=== PATIENT | male | born 1970 | race Caucasian/White ===

== ENCOUNTER 2019-04-16 08:03 | Emergency (ER) | payer MEDICARE, MEDICAID ==
[~2019-04-16] VITALS: Ht 175.3 cm; Wt 120.0 kg
[~2019-04-16 08:03] MED LIST: IBUP-1051 PO; PERM60CR19 TP; SUMA25TA35 PO
[2019-04-16] MEDS ORDERED: ketorolac trometh. 30mg/ml inj. IM ONE (08:25)
[2019-04-16 09:36] LABS: BASOPHILS # (AUTO) 0.1 X10'3 (0-0.2); BASOPHILS % (AUTO) 0.8 % (0-1); EOSINOPHILS # (AUTO) 0.3 X10'3 (0-0.9); EOSINOPHILS % (AUTO) 2.6 % (0-6); HEMATOCRIT 46.1 % (42.0-52.0); HEMOGLOBIN 16.2 g/dl (14.0-17.9); LYMPHOCYTES # (AUTO) 2.1 X10'3 (1.1-4.8); MEAN CORPUSCULAR HEMOGLOBIN 32.4 PG (27.0-31.0); MEAN CORPUSCULAR HGB CONC 35.1 g/dL (33.0-36.5); MEAN CORPUSCULAR VOLUME 92.5 FL (78-98); MEAN PLATELET VOLUME 11.2 FL (7.4-10.4); MONOCYTES # (AUTO) 0.8 X10'3 (0-0.9); MONOCYTES % (AUTO) 6.6 % (2-12); NEUTROPHILS # (AUTO) 8.5 X10'3 (1.8-7.7); PLATELET COUNT 325 X10'3 (140-440); RED BLOOD COUNT 4.99 X10'6 (4.70-6.10); RED CELL DISTRIBUTION WIDTH 13.7 % (11.5-14.5); WHITE BLOOD COUNT 11.8 X10'3 (4.5-11.0)
[2019-04-16 12:02] VITALS: BP 127/71
--- NOTE | 2019-04-16 12:05 | NUR ---
pat in room ,no concern,pat said he is ready to go ,informed that there is no order of discharge yet,will keep it updated.
--- NOTE | 2019-04-16 12:30 | NUR ---
awaiting for cmp result,blood [facility].
--- NOTE | 2019-04-16 13:21 | NUR ---
called [facility] lab per tech,patient is registered a different name so [facility] registration need to fax them a copy of patient's id.
--- NOTE | 2019-04-16 13:27 | NUR ---
patient's number [id number].pt wanting to be dc'd.does not want to wait for cmp result.
[2019-04-16 15:30] LABS: ALBUMIN 4.5 G/DL (3.4-5.0); ANION GAP 13 (8-12); BILIRUBIN,TOTAL 0.16 MG/DL (0.1-1.0); CALCIUM 9.2 MG/DL (8.5-10.1); CHLORIDE 106 MMOL/L (99-107); GLUCOSE 78 MG/DL (70-110); SODIUM 138 MMOL/L (135-145); eGFR > 90 ML/MIN
[2019-04-16 15:32] LABS: CARBON DIOXIDE 19 MMOL/L (24-32)
[2019-04-16 15:33] LABS: ALKALINE PHOSPHATASE 79 U/L (42-121)
== END 2019-04-16 13:33 | disposition home or self-care (01) ==
LOC: ER 08:04
DX: M25.522 Pain in left elbow (principal); M25.521 Pain in right elbow; M79.604 Pain in right leg; M79.605 Pain in left leg; G43.909 Migraine, unspecified, not intractable, without status migrainosus; E78.00 Pure hypercholesterolemia, unspecified; I10 Essential (primary) hypertension; J45.909 Unspecified asthma, uncomplicated; E11.9 Type 2 diabetes mellitus without complications; G89.29 Other chronic pain; F12.90 Cannabis use, unspecified, uncomplicated; F17.210 Nicotine dependence, cigarettes, uncomplicated; Z88.5 Allergy status to narcotic agent; Z79.899 Other long term (current) drug therapy; Z60.2 Problems related to living alone
CPT/HCPCS: 36415; 85025; 96372; 99283; J1885

== ENCOUNTER 2019-12-28 14:35 | Emergency (ER) | payer MEDICARE, MEDICAID ==
[~2019-12-28] VITALS: Ht 175.3 cm; Wt 116.0 kg
[2019-12-28 16:05] VITALS: BP 167/82
[2019-12-28] MEDS ORDERED: PANT-47 PO (16:05)
== END 2019-12-28 16:23 | disposition home or self-care (01) ==
LOC: ER 14:35
DX: K29.70 Gastritis, unspecified, without bleeding (principal); R11.2 Nausea with vomiting, unspecified; E66.9 Obesity, unspecified; G43.909 Migraine, unspecified, not intractable, without status migrainosus; E78.00 Pure hypercholesterolemia, unspecified; I10 Essential (primary) hypertension; J45.909 Unspecified asthma, uncomplicated; E11.9 Type 2 diabetes mellitus without complications; G89.29 Other chronic pain; F12.90 Cannabis use, unspecified, uncomplicated; F17.200 Nicotine dependence, unspecified, uncomplicated; Z98.890 Other specified postprocedural states; Z88.5 Allergy status to narcotic agent; Z79.899 Other long term (current) drug therapy
CPT/HCPCS: 99283

== ENCOUNTER 2020-09-23 06:59 | Emergency (ER) | payer MEDICARE, MEDICAID ==
[~2020-09-23] VITALS: Ht 175.3 cm; Wt 123.3 kg
[~2020-09-23 06:59] MED LIST changes: +PANT-47 PO
[2020-09-23] MEDS ORDERED: HYDROcodone/acetaminophen 10/325mg tab PO ONE (07:55)
--- NOTE | 2020-09-23 08:16 | NUR ---
Spoke to [facility] about pt's home medications. Pt was on Lisinopril 20mg daily, however it was last filled 03/2019. Pt also previously on Fenofibrate, ventolin HFA, and loratadine as well.
[2020-09-23] MEDS ORDERED: lisinopril 10 MG tablet PO ONE (08:20)
[2020-09-23] MEDS ORDERED: LISI-600 PO (08:20)
[2020-09-23 08:31] VITALS: BP_DIAS 81
[2020-09-23 08:32] VITALS: BP_SYST 129
== END 2020-09-23 08:43 | disposition home or self-care (01) ==
LOC: ER 06:59
DX: I10 Essential (primary) hypertension (principal); R11.0 Nausea; G43.909 Migraine, unspecified, not intractable, without status migrainosus; E78.00 Pure hypercholesterolemia, unspecified; J45.909 Unspecified asthma, uncomplicated; E11.9 Type 2 diabetes mellitus without complications; G89.29 Other chronic pain; F12.90 Cannabis use, unspecified, uncomplicated; Z98.890 Other specified postprocedural states; Z88.8 Allergy status to other drugs, medicaments and biological substances; Z79.899 Other long term (current) drug therapy
CPT/HCPCS: 99283

== ENCOUNTER 2020-11-25 10:14 | Emergency (ER) | payer MEDICARE, MEDICAID ==
[~2020-11-25] VITALS: Ht 175.3 cm; Wt 120.5 kg
[2020-11-25] MEDS ORDERED: ondansetron/PF 4mg/2ml inj IV ONE (13:05)
[2020-11-25] MEDS ORDERED: normal saline 1000ML IV soln IVB ONE (13:05)
[2020-11-25] MEDS ORDERED: pantoprazole 40 MG vial IV ONE (13:05)
[2020-11-25 13:29] LABS: BASOPHILS % (AUTO) 0.4 % (0-1); EOSINOPHILS # (AUTO) 0.2 X10'3 (0-0.9); EOSINOPHILS % (AUTO) 2.4 % (0-6); HEMATOCRIT 53.4 % (42.0-52.0); HEMOGLOBIN 17.5 g/dl (14.0-17.9); LYMPHOCYTES # (AUTO) 1.5 X10'3 (1.1-4.8); LYMPHOCYTES % (AUTO) 15.3 % (21-51); MEAN CORPUSCULAR HEMOGLOBIN 31.1 PG (27.0-31.0); MEAN CORPUSCULAR HGB CONC 32.8 g/dL (33.0-36.5); MEAN CORPUSCULAR VOLUME 94.9 FL (78-98); MONOCYTES # (AUTO) 0.6 X10'3 (0-0.9); MONOCYTES % (AUTO) 6.3 % (2-12); NEUTROPHILS # (AUTO) 7.3 X10'3 (1.8-7.7); NEUTROPHILS % (AUTO) 75.6 % (42-75); PLATELET COUNT 234 X10'3 (140-440); RED BLOOD COUNT 5.62 X10'6 (4.70-6.10); WHITE BLOOD COUNT 9.7 X10'3 (4.5-11.0)
[2020-11-25 13:47] LABS: ANION GAP 9 (8-16); BILIRUBIN,TOTAL 0.7 MG/DL (0.1-1.0); BLOOD UREA NITROGEN 13 MG/DL (7-18); BUN/CREATININE RATIO 16.7 (5.4-32.0); CALCIUM 9.3 MG/DL (8.5-10.1); CHLORIDE 103 MMOL/L (99-107); CREATININE 0.78 MG/DL (0.60-1.10); GLUCOSE 95 MG/DL (70-104); POTASSIUM 4.5 MMOL/L (3.5-5.1); SODIUM 139 MMOL/L (135-145); eGFR > 90 ML/MIN
[2020-11-25 13:48] LABS: ALANINE AMINOTRANSFERASE 35 U/L (12-78); ALBUMIN 4.6 G/DL (3.4-5.0); ALBUMIN/GLOBULIN RATIO 1.4 (1.1-1.5); ALKALINE PHOSPHATASE 70 IU/L (46-116); ASPARTATE AMINO TRANSFERASE 32 U/L (10-37); LIPASE 136 U/L (73-393)
[2020-11-25] MEDS ORDERED: ONDA8TAB13 PO (13:50)
[2020-11-25] MEDS ORDERED: PANT-47 PO (13:52)
--- NOTE | 2020-11-25 14:02 | NUR ---
discussed benefit of iv medications, patient refused IV. Spoke to Dr Lo and order received to change iv zofran and protonix to PO.
[2020-11-25] MEDS ORDERED: ondansetron 4mg rapidly disintigrating tab PO ONE (14:05)
[2020-11-25] MEDS ORDERED: pantoprazole 40mg Tablet.DR PO SCH (14:10)
[2020-11-25 14:56] VITALS: BP 162/81
== END 2020-11-25 14:20 | disposition home or self-care (01) ==
LOC: ER 10:15
DX: K52.9 Noninfective gastroenteritis and colitis, unspecified (principal); J02.9 Acute pharyngitis, unspecified; G43.909 Migraine, unspecified, not intractable, without status migrainosus; E78.00 Pure hypercholesterolemia, unspecified; I10 Essential (primary) hypertension; J45.909 Unspecified asthma, uncomplicated; E11.9 Type 2 diabetes mellitus without complications; G89.29 Other chronic pain; F32.9 Major depressive disorder, single episode, unspecified; F17.200 Nicotine dependence, unspecified, uncomplicated; F12.90 Cannabis use, unspecified, uncomplicated; Z60.2 Problems related to living alone; Z88.5 Allergy status to narcotic agent; Z79.899 Other long term (current) drug therapy
CPT/HCPCS: 36415; 80053; 83690; 85025; 99283

== ENCOUNTER 2021-04-14 11:30 | Emergency (ER) | payer MEDICARE, MEDICAID ==
[~2021-04-14] VITALS: Ht 175.3 cm; Wt 116.0 kg
[~2021-04-14 11:30] MED LIST changes: +ONDA8TAB13 PO
[2021-04-14 12:37] VITALS: BP 137/78
[2021-04-14] MEDS ORDERED: orphenadrine citrate 60mg/2ml inj. IM ONE (14:45)
[2021-04-14] MEDS ORDERED: ketorolac tromethamine 15mg/ml inj. IM ONE (14:45)
[2021-04-14] MEDS ORDERED: CYCL-1 PO (14:48)
[2021-04-14] MEDS ORDERED: NAPR-56 PO (14:48)
== END 2021-04-14 15:56 | disposition home or self-care (01) ==
LOC: ER 11:31
DX: M54.5 Low back pain (principal); G89.29 Other chronic pain; G43.909 Migraine, unspecified, not intractable, without status migrainosus; E78.00 Pure hypercholesterolemia, unspecified; I10 Essential (primary) hypertension; J45.909 Unspecified asthma, uncomplicated; E11.9 Type 2 diabetes mellitus without complications; F32.9 Major depressive disorder, single episode, unspecified; F17.200 Nicotine dependence, unspecified, uncomplicated; F12.90 Cannabis use, unspecified, uncomplicated; Z60.2 Problems related to living alone; Z88.8 Allergy status to other drugs, medicaments and biological substances; Z79.899 Other long term (current) drug therapy
CPT/HCPCS: 96372; 99284; J1885; J2360

== ENCOUNTER 2021-05-14 01:17 | Emergency (ER) | payer MEDICARE, MEDICAID ==
[~2021-05-14] VITALS: Ht 175.3 cm; Wt 118.2 kg
[~2021-05-14 01:17] MED LIST changes: +CYCL-1 PO; +NAPR-56 PO
[2021-05-14 01:54] LABS: ALANINE AMINOTRANSFERASE 39 U/L (12-78); ALBUMIN 4.2 G/DL (3.4-5.0); ALBUMIN/GLOBULIN RATIO 1.2 (1.1-1.5); ALKALINE PHOSPHATASE 84 IU/L (46-116); ANION GAP 6 (8-16); ASPARTATE AMINO TRANSFERASE 23 U/L (10-37); BILIRUBIN,TOTAL 0.4 MG/DL (0.1-1.0); BLOOD UREA NITROGEN 15 MG/DL (7-18); CALCIUM 9.3 MG/DL (8.5-10.1); CHLORIDE 104 MMOL/L (99-107); CREATININE 0.94 MG/DL (0.60-1.10); GLUCOSE 87 MG/DL (70-104); POTASSIUM 4.1 MMOL/L (3.5-5.1); SODIUM 141 MMOL/L (135-145); TOTAL CARBON DIOXIDE 30.7 MMOL/L (24-32); TOTAL PROTEIN 7.7 G/DL (6.4-8.2); eGFR 85 ML/MIN
[2021-05-14 01:58] LABS: TROPONIN I < 0.04 NG/ML (0.0-0.05)
[2021-05-14 02:15] VITALS: BP 171/109
[2021-05-14 02:18] LABS: BASOPHILS % (AUTO) 0.4 % (0-1); EOSINOPHILS # (AUTO) 0.3 X10'3 (0-0.9); EOSINOPHILS % (AUTO) 3.1 % (0-6); HEMATOCRIT 50.1 % (42.0-52.0); HEMOGLOBIN 16.7 g/dl (14.0-17.9); LYMPHOCYTES # (AUTO) 2.3 X10'3 (1.1-4.8); LYMPHOCYTES % (AUTO) 20.4 % (21-51); MEAN CORPUSCULAR HEMOGLOBIN 31.4 PG (27.0-31.0); MEAN CORPUSCULAR HGB CONC 33.3 g/dL (33.0-36.5); MEAN CORPUSCULAR VOLUME 94.1 FL (78-98); MEAN PLATELET VOLUME 9.3 FL (7.4-10.4); MONOCYTES # (AUTO) 0.8 X10'3 (0-0.9); MONOCYTES % (AUTO) 6.8 % (2-12); NEUTROPHILS # (AUTO) 7.8 X10'3 (1.8-7.7); NEUTROPHILS % (AUTO) 69.3 % (42-75); PLATELET COUNT 237 X10'3 (140-440); RED BLOOD COUNT 5.33 X10'6 (4.70-6.10); RED CELL DISTRIBUTION WIDTH 13.7 % (11.5-14.5); WHITE BLOOD COUNT 11.2 X10'3 (4.5-11.0)
== END 2021-05-14 03:00 | disposition home or self-care (01) ==
LOC: ER 01:18
DX: R07.89 Other chest pain (principal); I10 Essential (primary) hypertension; R42 Dizziness and giddiness; G43.909 Migraine, unspecified, not intractable, without status migrainosus; E78.00 Pure hypercholesterolemia, unspecified; J45.909 Unspecified asthma, uncomplicated; E11.9 Type 2 diabetes mellitus without complications; G89.29 Other chronic pain; F32.9 Major depressive disorder, single episode, unspecified; F12.90 Cannabis use, unspecified, uncomplicated; Z98.890 Other specified postprocedural states; Z60.2 Problems related to living alone; Z88.8 Allergy status to other drugs, medicaments and biological substances; Z79.899 Other long term (current) drug therapy
CPT/HCPCS: 36415; 71045; 80053; 84484; 85025; 93005; 99285

== ENCOUNTER 2021-11-23 08:09 | Emergency (ER) | payer MEDICARE, MEDICAID ==
[~2021-11-23] VITALS: Ht 175.3 cm; Wt 100.0 kg
[~2021-11-23 08:09] MED LIST changes: -NAPR-56 PO
[2021-11-23 08:19] VITALS: BP 129/75
[2021-11-23 08:41] LABS: BASOPHILS % (AUTO) 0.4 % (0-1); EOSINOPHILS # (AUTO) 0.2 X10'3 (0-0.9); EOSINOPHILS % (AUTO) 2.8 % (0-6); HEMATOCRIT 50.6 % (42.0-52.0); HEMOGLOBIN 16.8 g/dl (14.0-17.9); LYMPHOCYTES # (AUTO) 1.7 X10'3 (1.1-4.8); LYMPHOCYTES % (AUTO) 19.5 % (21-51); MEAN CORPUSCULAR HEMOGLOBIN 31.4 PG (27.0-31.0); MEAN CORPUSCULAR HGB CONC 33.3 g/dL (33.0-36.5); MEAN CORPUSCULAR VOLUME 94.3 FL (78-98); MONOCYTES # (AUTO) 0.6 X10'3 (0-0.9); MONOCYTES % (AUTO) 6.5 % (2-12); NEUTROPHILS # (AUTO) 6.1 X10'3 (1.8-7.7); NEUTROPHILS % (AUTO) 70.8 % (42-75); PLATELET COUNT 240 X10'3 (140-440); RED BLOOD COUNT 5.36 X10'6 (4.70-6.10); RED CELL DISTRIBUTION WIDTH 13.9 % (11.5-14.5); WHITE BLOOD COUNT 8.7 X10'3 (4.5-11.0)
[2021-11-23 08:56] LABS: ALANINE AMINOTRANSFERASE 30 U/L (12-78); ALBUMIN/GLOBULIN RATIO 1.3 (1.1-1.5); ALKALINE PHOSPHATASE 59 IU/L (46-116); ANION GAP 8 (8-16); ASPARTATE AMINO TRANSFERASE 18 U/L (10-37); BILIRUBIN,TOTAL 0.4 MG/DL (0.1-1.0); BLOOD UREA NITROGEN 14 MG/DL (7-18); BUN/CREATININE RATIO 15.4 (5.4-32.0); CALCIUM 9.1 MG/DL (8.5-10.1); CHLORIDE 105 MMOL/L (99-107); CREATININE 0.91 MG/DL (0.60-1.10); GLUCOSE 97 MG/DL (70-104); POTASSIUM 4.4 MMOL/L (3.5-5.1); SODIUM 140 MMOL/L (135-145); TOTAL PROTEIN 7.2 G/DL (6.4-8.2); eGFR 88 ML/MIN
[2021-11-23] MEDS ORDERED: iohexol 350MG/ML 100ml bottle IV ONE (11:34)
== END 2021-11-23 12:31 | disposition home or self-care (01) ==
LOC: ER 08:10
DX: R07.89 Other chest pain (principal); R06.02 Shortness of breath; G43.909 Migraine, unspecified, not intractable, without status migrainosus; E78.00 Pure hypercholesterolemia, unspecified; I10 Essential (primary) hypertension; J45.909 Unspecified asthma, uncomplicated; E11.9 Type 2 diabetes mellitus without complications; G89.29 Other chronic pain; F32.9 Major depressive disorder, single episode, unspecified; F12.90 Cannabis use, unspecified, uncomplicated; Z98.890 Other specified postprocedural states; Z60.2 Problems related to living alone; Z88.8 Allergy status to other drugs, medicaments and biological substances; Z79.899 Other long term (current) drug therapy
CPT/HCPCS: 36415; 71045; 71275; 80053; 83880; 84484; 85025; 93005; 99285; Q9967

== ENCOUNTER 2022-06-28 07:33 | Emergency (ER) | payer MEDICARE, MEDICAID ==
[~2022-06-28] VITALS: Ht 175.3 cm; Wt 130.7 kg
[2022-06-28] MEDS ORDERED: ketorolac trometh. 30mg/ml inj. IV ONE (07:55)
[2022-06-28] MEDS ORDERED: acetaminophen 325mg tablet PO ONE (07:55)
[2022-06-28] MEDS ORDERED: normal saline 1000ml 1,000 ML IV ONE (07:55)
[2022-06-28 08:05] LABS: BASOPHILS # (AUTO) 0.1 X10'3 (0-0.2); BASOPHILS % (AUTO) 0.6 % (0-1); EOSINOPHILS # (AUTO) 0.3 X10'3 (0-0.9); EOSINOPHILS % (AUTO) 3.4 % (0-6); HEMATOCRIT 48.3 % (42.0-52.0); LYMPHOCYTES # (AUTO) 1.4 X10'3 (1.1-4.8); LYMPHOCYTES % (AUTO) 16.6 % (21-51); MEAN CORPUSCULAR HEMOGLOBIN 30.8 PG (27.0-31.0); MEAN CORPUSCULAR HGB CONC 33.1 g/dL (33.0-36.5); MEAN CORPUSCULAR VOLUME 92.9 FL (78-98); MEAN PLATELET VOLUME 9.1 FL (7.4-10.4); MONOCYTES # (AUTO) 0.5 X10'3 (0-0.9); MONOCYTES % (AUTO) 6.3 % (2-12); NEUTROPHILS # (AUTO) 6.1 X10'3 (1.8-7.7); NEUTROPHILS % (AUTO) 73.1 % (42-75); PLATELET COUNT 221 X10'3 (140-440); RED CELL DISTRIBUTION WIDTH 13.8 % (11.5-14.5); WHITE BLOOD COUNT 8.3 X10'3 (4.5-11.0)
[2022-06-28 08:34] LABS: ALANINE AMINOTRANSFERASE 28 U/L (12-78); ALBUMIN/GLOBULIN RATIO 1.1 (1.1-1.5); ALKALINE PHOSPHATASE 65 IU/L (46-116); ANION GAP 7 (8-16); ASPARTATE AMINO TRANSFERASE 29 U/L (10-37); BILIRUBIN,TOTAL 0.4 MG/DL (0.1-1.0); BLOOD UREA NITROGEN 12 MG/DL (7-18); CALCIUM 8.8 MG/DL (8.5-10.1); CHLORIDE 104 MMOL/L (99-107); CREATININE 0.86 MG/DL (0.60-1.10); GLUCOSE 99 MG/DL (70-104); SODIUM 139 MMOL/L (135-145); TOTAL CARBON DIOXIDE 27.9 MMOL/L (24-32); TOTAL PROTEIN 7.5 G/DL (6.4-8.2); eGFR > 90 ML/MIN
[2022-06-28] MEDS ORDERED: cyclobenzaprine 10mg tablet PO ONE (09:10)
[2022-06-28 10:46] VITALS: BP 156/102
== END 2022-06-28 10:47 | disposition home or self-care (01) ==
LOC: ER 07:34
DX: R55 Syncope and collapse (principal); G89.29 Other chronic pain; M54.9 Dorsalgia, unspecified; G43.909 Migraine, unspecified, not intractable, without status migrainosus; I10 Essential (primary) hypertension; J45.909 Unspecified asthma, uncomplicated; F12.90 Cannabis use, unspecified, uncomplicated; Z88.5 Allergy status to narcotic agent
CPT/HCPCS: 36415; 71045; 80053; 83880; 84484; 85025; 93005; 96361; 96374; 99285; J1885; J7030

== ENCOUNTER 2022-11-24 15:50 | Emergency (ER) | payer MEDICARE, MEDICAID ==
[~2022-11-24] VITALS: Ht 175.3 cm; Wt 131.8 kg
[2022-11-24 16:10] LABS: BASOPHILS % (AUTO) 0.4 % (0-1); EOSINOPHILS # (AUTO) 0.2 X10'3 (0-0.9); EOSINOPHILS % (AUTO) 2.2 % (0-6); HEMATOCRIT 50.8 % (42.0-52.0); HEMOGLOBIN 16.9 g/dl (14.0-17.9); LYMPHOCYTES # (AUTO) 1.6 X10'3 (1.1-4.8); LYMPHOCYTES % (AUTO) 16.4 % (21-51); MEAN CORPUSCULAR HEMOGLOBIN 31.4 PG (27.0-31.0); MEAN CORPUSCULAR HGB CONC 33.2 g/dL (33.0-36.5); MEAN CORPUSCULAR VOLUME 94.5 FL (78-98); MEAN PLATELET VOLUME 8.7 FL (7.4-10.4); MONOCYTES # (AUTO) 0.8 X10'3 (0-0.9); MONOCYTES % (AUTO) 7.6 % (2-12); NEUTROPHILS # (AUTO) 7.2 X10'3 (1.8-7.7); NEUTROPHILS % (AUTO) 73.4 % (42-75); PLATELET COUNT 208 X10'3 (140-440); RED BLOOD COUNT 5.38 X10'6 (4.70-6.10); RED CELL DISTRIBUTION WIDTH 14.5 % (11.5-14.5); WHITE BLOOD COUNT 9.9 X10'3 (4.5-11.0)
--- NOTE | 2022-11-24 16:21 | NUR ---
EKG DELAYED DUE TO LAB
[2022-11-24 16:59] LABS: ALANINE AMINOTRANSFERASE 36 U/L (12-78); ALBUMIN 3.7 G/DL (3.4-5.0); ALBUMIN/GLOBULIN RATIO 1.1 (1.1-1.5); ALKALINE PHOSPHATASE 81 IU/L (46-116); ANION GAP 6 (8-16); ASPARTATE AMINO TRANSFERASE 24 U/L (10-37); BILIRUBIN,TOTAL 0.3 MG/DL (0.1-1.0); BLOOD UREA NITROGEN 13 MG/DL (7-18); BUN/CREATININE RATIO 15.7 (5.4-32.0); CALCIUM 8.7 MG/DL (8.5-10.1); CHLORIDE 103 MMOL/L (99-107); CREATININE 0.83 MG/DL (0.60-1.10); GLUCOSE 100 MG/DL (70-104); POTASSIUM 3.9 MMOL/L (3.5-5.1); SODIUM 139 MMOL/L (135-145); TOTAL CARBON DIOXIDE 30.2 MMOL/L (24-32); TOTAL PROTEIN 7.1 G/DL (6.4-8.2); eGFR > 90 ML/MIN
[2022-11-24] MEDS ORDERED: metoclopramide 10mg tablet PO ONE (18:30)
[2022-11-24] MEDS ORDERED: acetaminophen 325mg tablet PO ONE (18:30)
[2022-11-24 19:48] VITALS: BP 139/96
== END 2022-11-24 20:16 | disposition home or self-care (01) ==
LOC: ER 15:50
DX: R07.9 Chest pain, unspecified (principal); G43.909 Migraine, unspecified, not intractable, without status migrainosus; E78.00 Pure hypercholesterolemia, unspecified; I11.9 Hypertensive heart disease without heart failure; F31.9 Bipolar disorder, unspecified; F12.10 Cannabis abuse, uncomplicated; Z88.5 Allergy status to narcotic agent; Z79.899 Other long term (current) drug therapy
CPT/HCPCS: 36415; 71045; 80053; 83735; 83880; 84484; 85025; 93005; 99285

== ENCOUNTER 2024-02-21 11:19 | Emergency (ER) | payer MEDICARE, MEDICAID ==
[~2024-02-21] VITALS: Ht 175.3 cm; Wt 120.0 kg
[2024-02-21 13:32] VITALS: BP 140/87; PULSE 58; RESP 19; TEMP 98.1; O2SAT 99
== END 2024-02-21 13:36 | disposition home or self-care (01) ==
LOC: ER 11:20
DX: R55 Syncope and collapse (principal); E78.00 Pure hypercholesterolemia, unspecified; I10 Essential (primary) hypertension; E11.9 Type 2 diabetes mellitus without complications; G43.909 Migraine, unspecified, not intractable, without status migrainosus; F32.9 Major depressive disorder, single episode, unspecified; J45.909 Unspecified asthma, uncomplicated; G89.29 Other chronic pain; M54.9 Dorsalgia, unspecified; F12.90 Cannabis use, unspecified, uncomplicated; Z88.8 Allergy status to other drugs, medicaments and biological substances; Z91.030 Bee allergy status
CPT/HCPCS: 82948; 93005; 99284

== ENCOUNTER 2024-07-26 12:09 | Emergency (ER) | payer MEDICARE, MEDICAID ==
[~2024-07-26] VITALS: Ht 175.3 cm; Wt 118.8 kg
[~2024-07-26 12:09] MED LIST changes: +ONDA-245 PO; -ONDA8TAB13 PO
[2024-07-26 13:05] LABS: BASOPHILS # (AUTO) 0.1 X10'3 (0-0.2); BASOPHILS % (AUTO) 0.5 % (0-1); EOSINOPHILS # (AUTO) 0.2 X10'3 (0-0.9); EOSINOPHILS % (AUTO) 1.9 % (0-6); HEMATOCRIT 49.2 % (42.0-52.0); HEMOGLOBIN 16.8 g/dl (14.0-17.9); LYMPHOCYTES # (AUTO) 1.6 X10'3 (1.1-4.8); LYMPHOCYTES % (AUTO) 14.1 % (21-51); MEAN CORPUSCULAR HEMOGLOBIN 31.7 PG (27.0-31.0); MEAN CORPUSCULAR HGB CONC 34.1 g/dL (33.0-36.5); MEAN CORPUSCULAR VOLUME 92.9 FL (78-98); MEAN PLATELET VOLUME 8.8 FL (7.4-10.4); MONOCYTES # (AUTO) 0.7 X10'3 (0-0.9); MONOCYTES % (AUTO) 5.8 % (2-12); NEUTROPHILS # (AUTO) 8.8 X10'3 (1.8-7.7); NEUTROPHILS % (AUTO) 77.7 % (42-75); PLATELET COUNT 203 X10'3 (140-440); RED BLOOD COUNT 5.29 X10'6 (4.70-6.10); RED CELL DISTRIBUTION WIDTH 13.8 % (11.5-14.5); WHITE BLOOD COUNT 11.3 X10'3 (4.5-11.0)
[2024-07-26] MEDS: orphenadrine citrate 60mg/2ml inj. IM ONE (13:19)
[2024-07-26] MEDS: ketorolac trometh 15mg/ml vial 15 MG/ML ML IM ONE (13:19)
[2024-07-26 13:34] LABS: ANION GAP 12 (8-16); BLOOD UREA NITROGEN 10 MG/DL (7-18); BUN/CREATININE RATIO 14.5 (10.0-20.0); CALCIUM 9.3 MG/DL (8.5-10.1); CHLORIDE 105 MMOL/L (99-107); CREATININE 0.69 MG/DL (0.60-1.10); GLUCOSE 113 MG/DL (70-104); PRO BRAIN NATRIURETIC PEPTIDE 61 PG/ML (0-125); SODIUM 142 MMOL/L (135-145); TOTAL CARBON DIOXIDE 25.5 MMOL/L (24-32); eCRCL 122 ML/MIN; eGFR > 90 ML/MIN
[2024-07-26 13:35] LABS: POTASSIUM 4.1 MMOL/L (3.5-5.1)
[2024-07-26 15:05] VITALS: BP 131/70; PULSE 65; RESP 15; TEMP 97.8; O2SAT 96
== END 2024-07-26 14:20 | disposition home or self-care (01) ==
LOC: ER 12:10
DX: M25.512 Pain in left shoulder (principal); R07.9 Chest pain, unspecified; F17.210 Nicotine dependence, cigarettes, uncomplicated; G43.909 Migraine, unspecified, not intractable, without status migrainosus; E78.00 Pure hypercholesterolemia, unspecified; I10 Essential (primary) hypertension; J45.909 Unspecified asthma, uncomplicated; G89.29 Other chronic pain; M54.9 Dorsalgia, unspecified; F32.A Depression, unspecified; Z88.8 Allergy status to other drugs, medicaments and biological substances; Z79.1 Long term (current) use of non-steroidal anti-inflammatories (NSAID); Z79.899 Other long term (current) drug therapy; Z60.2 Problems related to living alone; Z98.890 Other specified postprocedural states
CPT/HCPCS: 36415; 71045; 80048; 83880; 84484; 85025; 93005; 96372; 99285; J1885; J2360

== ENCOUNTER 2024-12-20 12:33 | Emergency (ER) | payer MEDICARE, MEDICAID ==
[~2024-12-20] VITALS: Ht 175.3 cm; Wt 106.8 kg
[2024-12-20 12:48] VITALS: TEMP 98.2
[2024-12-20 16:22] LABS: BASOPHILS % (AUTO) 0.3 % (0-1); EOSINOPHILS # (AUTO) 0.1 X10'3 (0-0.9); HEMATOCRIT 50.6 % (42.0-52.0); HEMOGLOBIN 16.8 g/dl (14.0-17.9); LYMPHOCYTES # (AUTO) 1.3 X10'3 (1.1-4.8); MEAN CORPUSCULAR HEMOGLOBIN 30.8 PG (27.0-31.0); MEAN CORPUSCULAR HGB CONC 33.2 g/dL (33.0-36.5); MEAN CORPUSCULAR VOLUME 92.8 FL (78-98); MEAN PLATELET VOLUME 8.5 FL (7.4-10.4); MONOCYTES # (AUTO) 0.9 X10'3 (0-0.9); MONOCYTES % (AUTO) 6.7 % (2-12); NEUTROPHILS # (AUTO) 10.6 X10'3 (1.8-7.7); PLATELET COUNT 213 X10'3 (140-440); RED BLOOD COUNT 5.46 X10'6 (4.70-6.10); RED CELL DISTRIBUTION WIDTH 13.7 % (11.5-14.5)
[2024-12-20 16:22] LABS: BILIRUBIN,URINE NEGATIVE (Neg); CLARITY,URINE SLIGHTLY CLOUDY (Clear); COLOR,URINE YELLOW (Yellow); GLUCOSE, URINE NEGATIVE (Neg); KETONES,URINE NEGATIVE (Neg); LEUKOCYTE ESTERASE ,URINE NEGATIVE (Neg); NITRITES, URINE NEGATIVE (Neg); OCCULT BLOOD,URINE LARGE (Neg); PROTEIN,URINE 30 mg/dl (Neg); UROBILINOGEN,URINE 0.2 E.U/dL (0.2-1.0)
[2024-12-20 16:27] LABS: ALANINE AMINOTRANSFERASE 33 U/L (12-78); ALBUMIN/GLOBULIN RATIO 1.2 (1.1-1.5); ALKALINE PHOSPHATASE 87 IU/L (46-116); ANION GAP 8 (8-16); ASPARTATE AMINO TRANSFERASE 21 U/L (10-37); BILIRUBIN,TOTAL 1.1 MG/DL (0.1-1.0); BLOOD UREA NITROGEN 11 MG/DL (7-18); BUN/CREATININE RATIO 20.4 (10.0-20.0); CALCIUM 9.4 MG/DL (8.5-10.1); CHLORIDE 101 MMOL/L (99-107); CREATININE 0.54 MG/DL (0.60-1.10); GLUCOSE 90 MG/DL (70-104); SODIUM 140 MMOL/L (135-145); TOTAL CARBON DIOXIDE 30.6 MMOL/L (24-32); TOTAL PROTEIN 7.4 G/DL (6.4-8.2); eCRCL 156 ML/MIN; eGFR > 90 ML/MIN
[2024-12-20 16:28] LABS: UA COLLECTION TYPE CLN CATCH MIDSTREAM
[2024-12-20 16:32] LABS: BACTERIA,URINE FEW /HPF (Neg); MUCUS STRANDS MODERATE /LPF (Neg); RBC,URINE 20-50 /HPF (0-2); SQUAMOUS EPITHELIAL CELL,UR FEW /LPF (FEW); WBC,URINE 0-4 /HPF (0-4)
[2024-12-20 16:35] LABS: LIPASE 43 U/L (16-77); MAGNESIUM 2.2 MG/DL (1.5-2.4); PRO BRAIN NATRIURETIC PEPTIDE 42 PG/ML (0-125)
[2024-12-20 16:41] LABS: APTT 29 SECONDS (22-32); INR 1.1 INR
[2024-12-20] MEDS: LidoCAINE 2% Topical Jelly 11mL syringe (UROJET) TOP ONE (16:47)
[2024-12-20 16:49] LABS: PROTHROMBIN TIME 11.8 SECONDS (9.0-12.0)
[2024-12-20] MEDS ORDERED: FLO0.4C PO (17:37)
[2024-12-20] MEDS ORDERED: LEVO-65 PO (17:37)
[2024-12-20 18:29] VITALS: BP 156/98; PULSE 68; RESP 16; O2SAT 100
== END 2024-12-20 18:31 | disposition home or self-care (01) ==
LOC: ER 12:33
DX: R33.9 Retention of urine, unspecified (principal); G43.909 Migraine, unspecified, not intractable, without status migrainosus; E78.00 Pure hypercholesterolemia, unspecified; I10 Essential (primary) hypertension; J45.909 Unspecified asthma, uncomplicated; F32.A Depression, unspecified; F12.90 Cannabis use, unspecified, uncomplicated; Z88.5 Allergy status to narcotic agent; Z98.890 Other specified postprocedural states
CPT/HCPCS: 36415; 51702; 74176; 80053; 81001; 83690; 83735; 83880; 84484; 85025; 85610; 85730; 93005; 99284; A4314; A4358

== ENCOUNTER 2024-12-23 12:30 | Emergency (ER) | payer MEDICARE, MEDICAID ==
[~2024-12-23] VITALS: Ht 175.3 cm; Wt 115.0 kg
[~2024-12-23 12:30] MED LIST changes: +FLO0.4C PO; +LEVO-65 PO
[2024-12-23 12:33] VITALS: BP 109/49; PULSE 58; RESP 18; TEMP 97.5; O2SAT 99
[2024-12-23 15:15] LABS: BILIRUBIN,URINE NEGATIVE (Neg); CLARITY,URINE CLEAR (Clear); COLOR,URINE YELLOW (Yellow); GLUCOSE, URINE NEGATIVE (Neg); KETONES,URINE NEGATIVE (Neg); LEUKOCYTE ESTERASE ,URINE NEGATIVE (Neg); NITRITES, URINE NEGATIVE (Neg); OCCULT BLOOD,URINE LARGE (Neg); PROTEIN,URINE 100 mg/dl (Neg); UROBILINOGEN,URINE 0.2 E.U/dL (0.2-1.0)
[2024-12-23 15:18] LABS: UA COLLECTION TYPE FOLEY CATH
[2024-12-23 15:34] LABS: BACTERIA,URINE FEW /HPF (Neg); MUCUS STRANDS NONE SEEN /LPF (Neg); SQUAMOUS EPITHELIAL CELL,UR NONE SEEN /LPF (FEW); WBC,URINE 0-4 /HPF (0-4)
== END 2024-12-23 15:50 | disposition home or self-care (01) ==
LOC: ER 12:30
DX: R33.9 Retention of urine, unspecified (principal); N36.8 Other specified disorders of urethra; G43.909 Migraine, unspecified, not intractable, without status migrainosus; E78.00 Pure hypercholesterolemia, unspecified; I10 Essential (primary) hypertension; J45.909 Unspecified asthma, uncomplicated; F32.A Depression, unspecified; F12.90 Cannabis use, unspecified, uncomplicated; Z88.5 Allergy status to narcotic agent; Z98.890 Other specified postprocedural states
CPT/HCPCS: 81001; 99283

== ENCOUNTER 2024-12-27 13:04 | Emergency (ER) | payer MEDICARE, MEDICAID ==
[~2024-12-27] VITALS: Ht 175.3 cm; Wt 106.8 kg
[~2024-12-27 13:04] MED LIST changes: -LEVO-65 PO
[2024-12-27 13:37] VITALS: BP 105/61; PULSE 65; RESP 15; TEMP 97; O2SAT 95
[2024-12-27] MEDS ORDERED: POLY119P2 PO (16:18)
[2024-12-27] MEDS ORDERED: DOCU-151 PO (16:18)
== END 2024-12-27 17:00 | disposition home or self-care (01) ==
LOC: ER 13:04
DX: R33.9 Retention of urine, unspecified (principal); Z46.6 Encounter for fitting and adjustment of urinary device; K59.00 Constipation, unspecified; G43.909 Migraine, unspecified, not intractable, without status migrainosus; E78.00 Pure hypercholesterolemia, unspecified; J45.909 Unspecified asthma, uncomplicated; F32.A Depression, unspecified; I10 Essential (primary) hypertension; F12.90 Cannabis use, unspecified, uncomplicated; Z88.5 Allergy status to narcotic agent; Z98.890 Other specified postprocedural states
CPT/HCPCS: 99282

== ENCOUNTER 2025-02-24 19:24 | Emergency (ER) | payer MEDICARE, MEDICAID ==
[~2025-02-24] VITALS: Ht 175.3 cm; Wt 129.6 kg
[~2025-02-24 19:24] MED LIST changes: +DOCU-151 PO; -FLO0.4C PO; -PERM60CR19 TP; +PERM60CR27 TP; +POLY119P2 PO
[2025-02-24] MEDS ORDERED: ACET-3174 PO (20:22)
[2025-02-24] MEDS ORDERED: HYDR50TA65 PO (20:22)
[2025-02-24] MEDS: hydrOXYzine 25 MG tablet PO STA (21:15)
[2025-02-24] MEDS: acetaminophen 325mg tablet PO STA (21:16)
[2025-02-24 21:28] VITALS: BP 108/67; PULSE 65; RESP 16; TEMP 98.1; O2SAT 99
== END 2025-02-24 21:29 | disposition home or self-care (01) ==
LOC: ER 19:26
DX: F41.9 Anxiety disorder, unspecified (principal); R51.9 Headache, unspecified; E78.00 Pure hypercholesterolemia, unspecified; I10 Essential (primary) hypertension; J45.909 Unspecified asthma, uncomplicated; F12.90 Cannabis use, unspecified, uncomplicated; Z88.5 Allergy status to narcotic agent
CPT/HCPCS: 99283; Q0177